=== PATIENT | female | born 1935 | race Caucasian/White ===

== ENCOUNTER 2017-03-05 15:42 | Emergency (ER) | payer MEDICARE, OTHER ==
[~2017-03-05 15:42] MED LIST: ANTACID GELATI1 EACH PO; ASA CHILDREN'S81 MG PO; BENAZEPRIL HCL40 MG PO; CEFDINIR300 MG PO; COUMADIN4 MG PO; FISH OIL 1,0001 EAC1 PO; LASIX DPS40 MG PO; LOPRESSOR50 MG PO; METFORMIN HCL1000 MG PO; RYTHMOL225 MG PO; SENIOR VITAMIN PO; ZOCOR DPS20 MG PO; [UNRECOGNIZED DRUG - OTHER] OU
[2017-03-12] MEDS ORDERED: ATROVENT NASAL30 ML NS (09:53)
[2017-03-12] MEDS ORDERED: NORVASC5 MG PO (09:55)
[2017-03-12] MEDS ORDERED: FEOSOL-DPS325 MG PO (09:55)
[2017-03-12] MEDS ORDERED: JOINT HEALTH T1 EACH PO (09:56)
[2017-03-12] MEDS ORDERED: NEXIUM 24HR20 M1 PO (09:57)
[2017-03-12] MEDS ORDERED: CALCIUM600 MG PO (09:57)
[2017-03-12] MEDS ORDERED: CORDARONE DPS200 MG PO (09:58)
[2017-03-12] MEDS ORDERED: FOLVITE-DPS1 MG PO (09:58)
[2017-03-12] MEDS ORDERED: COLACE-DPS100 MG PO (09:59)
[2017-03-12] MEDS ORDERED: TYLENOL DPS325 MG PO (10:00)
[2017-03-12] MEDS ORDERED: NITROSTAT0.4 MG SL (10:00)
[2017-03-12] MEDS ORDERED: DAILY MULTIPLE1 EAC1 PO (10:04)
== END 2017-03-05 19:20 | disposition home or self-care (01) ==
DX: R06.02 Shortness of breath (principal); D64.9 Anemia, unspecified; E11.9 Type 2 diabetes mellitus without complications; I10 Essential (primary) hypertension; Z79.01 Long term (current) use of anticoagulants; Z79.899 Other long term (current) drug therapy; Z88.8 Allergy status to other drugs, medicaments and biological substances